=== PATIENT | female | born 1965 | race Caucasian/White ===

== ENCOUNTER 2017-12-11 10:48 | Emergency (ER) | payer OTHER, MEDICARE, SELFPAY ==
[2017-12-11 10:51] VITALS: BP 157/104; PULSE 75; RESP 16; TEMP 37.1; O2SAT 99; BMI 40.3
--- NOTE | 2017-12-11 11:01 | ED.VISSUMM ---
- ER Visit Summary Date of Service: 12/11/17 Chief Complaint: High blood glucose History of Present Illness: The patient is a 52 F with a history of diabetes presenting with elevated blood glucose. She had steroid injections 3 days ago and subsequently her glucose was elevated on fingerstick testing. She started drinking more water but this morning she thought she smelled ketones in her urine. No other symptoms. No recent infection. Physical Examination: Vitals are within normal limits. She is not in distress. Neck is supple. Heart tones are regular without murmur. Lungs are clear bilaterally. No rash. Neurologic and mental status exam are normal. Test Results: Glucose was 221 on her BMP. Anion gap is normal. Ketones negative Emergency Department Course and Treatment: She was given IV fluids. Glucose is only slightly elevated and she does not appear to be in DKA. She was given IV fluids and reevaluated and remains well-appearing. No complaints of infection. I think she can safely follow-up as an outpatient and return if worse Treatment Plan: Follow-up as needed Disposition: Home stable condition Impression: Initial encounter hyperglycemia without evidence of DKA This note was generated with [employer] dictation software. It may contain incorrect words, spelling, and punctuation that were not noted in review of the chart prior to signing ED Disposition - Plan for ED Patient: Chief Complaint: Hyperglycemia Diagnosis: Hyperglycemia Instructions: ED Hyperglycemia Diabetic Referrals: Ivette Suazo MD [Primary Care Provider] -
[2017-12-11 12:07] VITALS: BP 145/85; PULSE 80; RESP 14; O2SAT 97
[2017-12-11 12:13] LABS: Anion Gap 6 (5-15); BUN 26 mg/dL (7-18); BUN/Creat Ratio 31.9 RATIO (10-20); Calcium,Total 9.2 mg/dL (8.5-10.1); Chloride 104 mmol/L (98-107); Creatinine, Serum 0.82 mg/dL (0.55-1.02); EST Glomerular Filtration Rate 78 mL/min (>60); Est Glom Filt Rate - Afr Amer 94 mL/min (>60); Estimated Creatinine Clearance 68.51 ml/min; Glucose 221 mg/dL (74-106); Potassium 4.1 mmol/L (3.5-5.1); Sodium Level 136 mmol/L (136-145)
[2017-12-11 12:27] VITALS: BP 145/80; PULSE 80; RESP 14; O2SAT 99
[2017-12-11 12:31] LABS: Bedside Glucose 227 mg/dL (70-110)
== END 2017-12-11 12:37 | disposition home or self-care (01) ==
LOC: ED 11:39
PROVIDERS: Emergency Provider Emergency Medicine; Family Provider Internal Medicine; PCP Internal Medicine
DX: E11.65 Type 2 diabetes mellitus with hyperglycemia (principal); Z79.4 Long term (current) use of insulin; M79.7 Fibromyalgia; F31.9 Bipolar disorder, unspecified; F40.01 Agoraphobia with panic disorder; M06.9 Rheumatoid arthritis, unspecified; Z72.0 Tobacco use; Z79.899 Other long term (current) drug therapy
CPT/HCPCS: 80048; 82009; 82962; 99283; J7030; A4216

== ENCOUNTER → 2018-01-19 12:31 | Outpatient (CLI) | payer OTHER, MEDICARE, SELFPAY ==
--- NOTE | 2018-01-19 12:59 | MRI_ITS ---
STUDY: MRI LUMBAR SPINE WITHOUT CONTRAST REASON FOR EXAM: Female, 52 years old. Low back pain. Patient has history of rheumatoid arthritis. TECHNIQUE: Standardized fat and water weighted pulse sequences were obtained in the sagittal and axial planes. COMPARISON: MRI lumbar spine dated December 24, 2015. FINDINGS: Focus of abnormal T2 and T1 hyperintensity in the T11 vertebral body is most likely a hemangioma. T12-L1: There is mild annular disk bulge and osteophyte complex. There is mild degenerative arthropathy of the facet joints. Bilateral neuroforamina are narrowed without MR evidence for nerve impingement. There is no significant central canal stenosis. Normal lumbar lordosis. There is no substantial scoliosis. Normal conus medullaris that terminates at the L1 level. L1-2: Normal endplates. Normal disc height, signal and morphology. Normal bilateral facet joints. Normal central canal and bilateral lateral recesses. Normal bilateral intervertebral neural foramina. There is a large area of abnormal T1 and T2 hyperintensity within the L2 vertebral body. This is probably a hemangioma. L2-3: Normal endplates. Normal disc height, signal and morphology. Normal bilateral facet joints. Normal central canal and bilateral lateral recesses. Normal bilateral intervertebral neural foramina. L3-4: There is mild annular disk bulge and osteophyte complex. There is mild degenerative arthropathy of the facet joints. Bilateral neuroforamina are narrowed without MR evidence for nerve impingement. There is no significant central canal stenosis. L4-5: There is annular disc bulge and osteophyte complex. There is severe degenerative arthropathy of facet joints. The neural foramina are narrowed with questionable impingement of the left L4 nerve root at the neural foramen. There is no significant central acquired canal stenosis. L5-S1: There is mild annular disk bulge and osteophyte complex. There is mild degenerative arthropathy of the facet joints. Bilateral neuroforamina are narrowed without MR evidence for nerve impingement. There is no significant central canal stenosis. Normal visualized sacral ala. Normal visualized paraspinous soft tissue structures. There appears to be a cyst within the right kidney measuring up to 2 cm in greatest dimension. Appears to be multifocal renal parenchymal loss possibly related to previous ischemia or infection. MRI/Spine Lumbar (Routine) IMPRESSION: Multilevel degenerative disc disease and degenerative arthropathy lumbar spine with most severe changes at L4-5 with potential nerve impingement. Electronically Signed: Vane Boyce MD at 14:05 EDT , Service support ,
== END ==
PROVIDERS: Family Provider Internal Medicine; PCP Internal Medicine; Visit Provider Anesthesiology Pain Medicine
DX: M51.36 Other intervertebral disc degeneration, lumbar region (principal); M46.87 Other specified inflammatory spondylopathies, lumbosacral region; R29.898 Other symptoms and signs involving the musculoskeletal system
CPT/HCPCS: 72148

== ENCOUNTER 2018-01-22 19:12 | Emergency (ER) | payer OTHER, MEDICARE, SELFPAY ==
[2018-01-22 19:14] VITALS: BP 156/102; PULSE 84; RESP 17; TEMP 35.9; O2SAT 100; BMI 42.6
--- NOTE | 2018-01-22 19:29 | ED.VISSUMM ---
- ER Visit Summary Date of Service: 01/22/18 Chief Complaint: Swelling left thumb History of Present Illness: The patient is a [address] Suazo. 8 days ago she had a left carpal tunnel release and a left thumb trigger release. States that today she noticed that she had more swelling in that left thumb. She reports that she has paresthesias on the lateral side of the thumb ever since the surgery that are unchanged. She states that she has pain is 5 out of 10 severity. Is worsened by movement. Is relieved by rest and Percocet which she is previously on. She denies any constitutional symptoms. No fever, chills, nausea, or vomiting. Physical Examination: Vitals: Stable. Afebrile. General: Well-nourished and well-developed. Head: Normocephalic atraumatic. Neck: Supple, no lymphadenopathy. No JVD. Nontender. Cardiovascular: Regular rate and rhythm. No murmurs. Respiratory: No respiratory distress. Clear to auscultation bilaterally. Abdominal: Soft, nontender, nondistended, normal bowel sounds. No guarding, rebound, or peritoneal signs. Back: Nontender. Extremities: Left hand: Mild swelling to her thumb. Less than 2 second capillary refill. She has 3 stitches just proximal to the MCP joint. These are clean, dry, and intact. There is minimal surrounding erythema. There is no induration or fluctuance. She also has 3 stitches over the incision over the proximal portion of the palm of her hand that appear the same as the one over her thumb. Skin: Normal color, no rash. Neurologic: Alert and oriented ?3. Cranial nerves II through XII are intact. Normal strength and sensation. Psych: Normal affect. Emergency Department Course and Treatment: She was reassured. There is no evidence of infection. She is instructed to follow-up Dr. Haynes in 2 days as previously scheduled. Disposition: To home in improved and stable condition. Impression: 1. 8 days status post left hand surgery. This note was generated with [employer] dictation software. It may contain incorrect words, spelling, and punctuation that were not noted in review of the chart prior to signing ED Disposition - Plan for ED Patient: Disposition: Home or Assisted Living Chief Complaint: Wound Check Instructions: ED Wound Check Post Op No Infec Referrals: Jose Haynes MD [STAFF PHYSICIAN] - 2 Days for wound check
[2018-01-22 19:54] VITALS: BP 145/90; PULSE 90; RESP 14; O2SAT 99
== END 2018-01-22 19:56 | disposition home or self-care (01) ==
LOC: ED 19:51
PROVIDERS: Emergency Provider Emergency Medicine; Family Provider Internal Medicine; PCP Internal Medicine
DX: M79.89 Other specified soft tissue disorders (principal); Z98.890 Other specified postprocedural states; J45.909 Unspecified asthma, uncomplicated; E11.9 Type 2 diabetes mellitus without complications; Z79.4 Long term (current) use of insulin; Z79.899 Other long term (current) drug therapy
CPT/HCPCS: 99282

== ENCOUNTER 2018-04-09 23:36 | Emergency (ER) | payer OTHER, MEDICARE, SELFPAY ==
[2018-04-09 23:37] VITALS: BP 167/89; PULSE 86; RESP 17; TEMP 36.2; O2SAT 96; BMI 41.8
--- NOTE | 2018-04-09 23:50 | ED.VISSUMM ---
- ER Visit Summary Date of Service: 04/09/18 Chief Complaint: [] Back pain History of Present Illness: The patient is a 52 F [] complaining of acute back pain today after cleaning her room. Patient reports history of chronic back pain with multiple bulging disks in her lumbosacral spine. Denies incontinence or saddle anesthesia. No other complaints at this time. Physical Examination: [] Afebrile, vital signs stable. 52-year-old female no acute distress. Examination of the back reveals no significant findings. There is mild midline lumbosacral tenderness without step-off or surrounding erythema or cellulitis. Remainder of exam is unremarkable. Test Results: [] None. Emergency Department Course and Treatment: [] Patient given 30 IM Toradol and 4 mg orally of Zofran ODT. Prescription for Zofran ODT was provided at discharge. Patient encouraged to follow-up with her primary care physician. Treatment Plan: [] Follow-up with PCP. Disposition: [] Discharge, stable. Impression: [] Acute on chronic back pain This note was generated with [employer] dictation software. It may contain incorrect words, spelling, and punctuation that were not noted in review of the chart prior to signing ED Disposition - Plan for ED Patient: Chief Complaint: Back Referrals: Ivette Suazo MD [Primary Care Provider] -
--- NOTE | 2018-04-09 23:52 | ED.DEP ---
ED Disposition - Plan for ED Patient: Disposition: Home or Assisted Living Chief Complaint: Back Instructions: ED Low Back Pain Injury Referrals: Ivette Suazo MD [Primary Care Provider] -
[2018-04-09] MEDS: Ketorolac 30 MG/ML Syringe IM (23:59)
[2018-04-09] MEDS: Ondansetron ODT 4 MG Tablet PO (23:59)
[2018-04-10 00:24] VITALS: PULSE 88; RESP 16
== END 2018-04-10 00:24 | disposition home or self-care (01) ==
LOC: ED 04-10 00:15
PROVIDERS: Emergency Provider Emergency Medicine; Family Provider Internal Medicine; PCP Internal Medicine
DX: M54.5 Low back pain (principal); G89.29 Other chronic pain
CPT/HCPCS: 96372; 99283

== ENCOUNTER 2018-06-20 10:32 | Emergency (ER) | payer OTHER, MEDICARE, SELFPAY ==
[2018-06-20 10:33] VITALS: BP 160/86; PULSE 82; RESP 18; TEMP 36.6; O2SAT 99; BMI 41.0
[2018-06-20 10:51] VITALS: O2SAT 100
[2018-06-20 10:59] LABS: Absolute Neutrophil Count 3.1 X10^3/uL (2.0-7.7); Basophil# 0.02 X10^3/uL; Basophil% 0.3 % (0-1); Eosinophil# 0.15 X10^3/uL; Eosinophils% 2.3 % (0-5); Hematocrit 45.6 % (37-47); Hemoglobin 15.9 g/dl (12.0-15.0); Lymphocyte % 42.2 % (19-41); Mean Corp Hgb Conc 34.9 g/gl (32-36); Mean Corpuscular Hgb 31.4 pg (27.0-32.0); Mean Corpuscular Volume 90.1 fL (81-99); Monocyte# 0.53 X10^3/uL; Neutrophil # 3.11 X10^3/uL (2.7-7.7); Neutrophil % 46.9 % (47-70); POSITIVE COUNT NO; POSITIVE DIFFERENTIAL NO; POSITIVE MORPHOLOGY NO; Platelet Count 255 K/mm3 (150-450); RBC Distribution Width CV 11.6 % (11.6-14.6); RBC Distribution Width SD 38.1 fl (35.1-43.9); Red Blood Count 5.06 M/mm3 (4.2-5.4); White Blood Count 6.6 K/mm3 (4.4-11.0)
[2018-06-20 11:31] LABS: D-Dimer Quantitative (DVT/PE) < 0.27 FEU/ug/m (0.27-0.49)
[2018-06-20 11:39] LABS: Anion Gap 7 (5-15); BUN 12 mg/dL (7-18); BUN/Creat Ratio 15.2 RATIO (10-20); Calcium,Total 9.4 mg/dL (8.5-10.1); Chloride 105 mmol/L (98-107); Creatinine, Serum 0.79 mg/dL (0.55-1.02); EST Glomerular Filtration Rate 81 mL/min (>60); Est Glom Filt Rate - Afr Amer 98 mL/min (>60); Estimated Creatinine Clearance 73.25 ml/min; Glucose 339 mg/dL (74-106); Potassium 5.1 mmol/L (3.5-5.1); Sodium Level 137 mmol/L (136-145)
[2018-06-20] MEDS: Ondansetron 4 MG/2 ML Vial IV (12:30)
[2018-06-20] MEDS: Morphine 4 MG/ML Syringe IV (12:30)
[2018-06-20] MEDS: LORazepam 1 MG Tablet PO (12:30)
[2018-06-20 12:31] VITALS: BP 165/81; PULSE 76; RESP 16; O2SAT 98
--- NOTE | 2018-06-20 12:40 | ED.VISSUMM ---
- ER Visit Summary Date of Service: 06/20/18 Chief Complaint: Chest pain History of Present Illness: The patient is a 53 F presenting with chest pain which started 1 hour prior to arrival. She states the pain is in her mid chest. It is associated with shortness of breath. She denies fever or cough. She is a smoker. She had similar symptoms in February 2017 and was admitted for stress test. She had a negative stress test at that time and was diagnosed with anxiety. She states she is not under any increased stress. Denies other complaints. Physical Examination: Vitals are stable. Patient is afebrile. Alert no acute distress. HEENT exam is unremarkable. Neck is supple. Lungs are clear and equal bilaterally. Heart is regular rate and rhythm. Abdomen is soft nontender nondistended. Extremities are unremarkable. Skin is warm and dry. No focal neurologic deficit. Remainder of exam is unremarkable. Emergency Department Course and Treatment: Patient was given morphine, Zofran, Ativan. EKG is sinus rate of 83 with no acute ischemic changes. Chest x-ray shows no acute process. CBC, chemistries unremarkable other than glucose 339. Troponin is negative. D-dimer negative. Delta troponin is also negative. On repeat evaluation, patient is resting comfortably and is pain-free. She is advised to follow-up with her primary care physician. Advised return to ED for any worsening complaints. Disposition: Discharge home Impression: Atypical chest pain This note was generated with [employer] dictation software. It may contain incorrect words, spelling, and punctuation that were not noted in review of the chart prior to signing ED Disposition - Plan for ED Patient: Chief Complaint: Chest Pain Referrals: Ivette Suazo MD [Primary Care Provider] -
[2018-06-20 12:57] VITALS: BP 165/81; PULSE 75; RESP 17; O2SAT 98
[2018-06-20 13:07] LABS: Lithium < 0.20 mmol/L (0.60-1.20); Valproic Acid (Depakene) Level < 3 ug/mL (50-100)
[2018-06-20 14:06] VITALS: BP 116/81; PULSE 77; RESP 17; O2SAT 93
--- NOTE | 2018-06-20 14:38 | ED.DEP ---
ED Disposition - Plan for ED Patient: Chief Complaint: Chest Pain Instructions: ED Chest Pain Atypical Unkn Cause Referrals: Ivette Suazo MD [Primary Care Provider] -
[2018-06-20 14:48] VITALS: BP 116/81; PULSE 76; RESP 16; O2SAT 95
== END 2018-06-20 14:49 | disposition home or self-care (01) ==
PROVIDERS: Emergency Provider Emergency Medicine; Family Provider Internal Medicine; PCP Internal Medicine
DX: R07.89 Other chest pain (principal); I10 Essential (primary) hypertension; E11.9 Type 2 diabetes mellitus without complications; M79.7 Fibromyalgia; F41.0 Panic disorder [episodic paroxysmal anxiety]; F17.200 Nicotine dependence, unspecified, uncomplicated; Z79.4 Long term (current) use of insulin; Z79.899 Other long term (current) drug therapy
CPT/HCPCS: 36415; 71045; 80048; 80164; 80178; 84484; 85025; 85379; 93005; 96374; 96375; 99285; A4216; J2405

== ENCOUNTER 2018-10-29 01:26 | Emergency (ER) | payer OTHER, MEDICARE, SELFPAY ==
[2018-10-29 01:26] VITALS: BMI 40.3
[2018-10-29 01:27] VITALS: BP 152/79; PULSE 84; RESP 20; TEMP 36.6; O2SAT 100; BMI 39.4
--- NOTE | 2018-10-29 02:04 | ED.DCSUM_ITS ---
- ER Visit Summary Date of Service: 10/29/18 Chief Complaint: Low blood sugar reading on new device History of Present Illness: The patient is a 53 F who presents because of low blood sugar reading. She has had multiple low blood sugar readings. She denies any symptoms of hypoglycemia i.e. palpitations, diaphoresis nausea altered mental status. Her primary care physician removed most of her diabetic medications. She states she did a fingerstick and the reading was greater than 200. Physical Examination: Vital signs noted and remarkable for blood pressure 152/79. She is alert oriented x3 with a nonfocal neurologic exam. HEENT exam is normal. Heart is regular. There is no murmur, gallop or rub. Lungs are clear to auscultation. Abdomen soft nontender. Test Results: BGT 170 Emergency Department Course and Treatment: Assess blood sugar Treatment Plan: Speak with PCP and need new device calibrated Disposition: Discharge to home Impression: False low blood sugar reading on glucometer, inaccurate This note was generated with [employer] dictation software. It may contain incorrect words, spelling, and punctuation that were not noted in review of the chart prior to signing ED Disposition - Plan for ED Patient: Disposition: Home or Assisted Living Chief Complaint: Hypoglycemia Instructions: ED Screening Exam Medical Nonurgent Referrals: Ivette Suazo MD [Primary Care Provider] - Additional Instructions: You need to follow-up with Dr. Thompson and have the device recalibrated and your meds adjusted appropriately since the and glucometer has not been reading accurately
[2018-10-29 02:21] LABS: Bedside Glucose 176 mg/dL (70-110)
== END 2018-10-29 02:18 | disposition home or self-care (01) ==
PROVIDERS: Emergency Provider Emergency Medicine; Family Provider Internal Medicine; PCP Internal Medicine
DX: E11.9 Type 2 diabetes mellitus without complications (principal); I10 Essential (primary) hypertension; M06.9 Rheumatoid arthritis, unspecified; M79.7 Fibromyalgia; G25.81 Restless legs syndrome; Z72.0 Tobacco use; Z79.82 Long term (current) use of aspirin; Z79.84 Long term (current) use of oral hypoglycemic drugs; Z79.899 Other long term (current) drug therapy
CPT/HCPCS: 82962; 99282

== ENCOUNTER 2020-04-01 01:09 | Emergency (ER) | payer OTHER, MEDICARE, SELFPAY ==
[2020-04-01 01:10] VITALS: BP 162/82; PULSE 85; RESP 15; TEMP 36.8; O2SAT 97; BMI 42.0
--- NOTE | 2020-04-01 01:43 | ED.VISSUMM ---
- ER Visit Summary Date of Service: 04/01/20 Chief Complaint: Whole body pain with a history of fibromyalgia History of Present Illness: The patient is a 54 F history of diabetes, rheumatoid arthritis and fibromyalgia. Patient states that she has had building whole body pain for the last 2 weeks. Denies any falls or trauma. No fever. Says she has had symptoms like this before but never to this degree. She said she is received Toradol before in emergency department helped her specifically for pain. She denies any nausea or vomiting. Physical Examination: Middle-aged female no acute distress vital signs stable afebrile. Does not look septic or toxic. HEENT exam unremarkable. Lungs clear to auscultation bilaterally. Heart regular rhythm no murmur. Abdomen soft nontender. Normal bowel sounds no peritoneal signs. Moving all 4 extremities.. Calves nontender no edema no cords. Neurologically she is awake and alert with no focal motor deficit. Test Results: Blood glucose was 447. Emergency Department Course and Treatment: BGT will be obtained. She will receive IM Toradol. Treatment Plan: Patient has unremarkable exam. Continue her current medications. Follow-up with her primary care physician. Watch her blood sugars closely. Disposition: Discharge Impression: Non-verifiable pain History of fibromyalgia History of diabetes with hyperglycemia. This note was generated with [employer] dictation software. It may contain incorrect words, spelling, and punctuation that were not noted in review of the chart prior to signing ED Disposition - Plan for ED Patient: Disposition: Home or Assisted Living Instructions: ED Chronic Pain Referrals: Ivette Suazo MD [Primary Care Provider] - As soon as possible Additional Instructions: Follow-up with your doctor for reevaluation. Watch your blood sugars closely.
--- NOTE | 2020-04-01 01:46 | ED.DEP ---
ED Disposition - Plan for ED Patient: Disposition: Home or Assisted Living Instructions: ED Chronic Pain Referrals: Ivette Suazo MD [Primary Care Provider] - As soon as possible Additional Instructions: Follow-up with your doctor for reevaluation. Watch your blood sugars closely.
[2020-04-01 02:11] LABS: Bedside Glucose 447 mg/dL (70-110)
[2020-04-01] MEDS: Ketorolac 60 MG/2 ML Vial IM (02:11)
[2020-04-01 02:27] VITALS: BP 156/73; PULSE 76; RESP 15; O2SAT 94
== END 2020-04-01 02:58 | disposition home or self-care (01) ==
LOC: ED 02:47
PROVIDERS: Emergency Provider Emergency Medicine; PCP Internal Medicine
DX: M79.7 Fibromyalgia (principal); G89.29 Other chronic pain; E11.65 Type 2 diabetes mellitus with hyperglycemia; M06.9 Rheumatoid arthritis, unspecified; Z79.4 Long term (current) use of insulin
CPT/HCPCS: 82962; 96372; 99282

== ENCOUNTER 2020-04-02 11:27 | Emergency (ER) | payer OTHER, MEDICARE, SELFPAY ==
[2020-04-01 01:10] VITALS: BMI 42.0
[2020-04-02 11:28] VITALS: BP 183/88; PULSE 77; RESP 16; TEMP 36.3; O2SAT 99; BMI 39.9
--- NOTE | 2020-04-02 11:51 | ED.DCSUM_ITS ---
History of Present Illness Chief Complaint: Other, Pain/Inj Informant: Patient Onset: Weeks - 2 weeks Context: Gradual Onset Current Severity: Moderate Maximum Severity: Moderate Narrative: Patient presents with pain from her lower ribs down through her trunk and legs. She is a history of rheumatoid arthritis and fibromyalgia. She states this is not typical of her flares. She is currently on Topamax and Voltaren. She takes Mirapex at night. She states she ran out of her Zanaflex last evening. Patient was in the ER early yesterday morning and received a shot of Toradol which she states did give her some relief and she was able to sleep for a short time. She called her PCP today who advised they were not able to help her and she should go to the emergency room. They did agree to see her tomorrow as a phone visit. - Past Medical History (1) Chronic pain Status: Chronic Comment: sees Dr. Monsalve (2) DM type 2 (diabetes mellitus, type 2) Status: Chronic (3) Fibromyalgia Status: Chronic (4) HTN (hypertension) Status: Chronic (5) Restless leg Status: Chronic (6) Rheumatoid arthritis Status: Chronic Comment: sees Dr. Davis (7) Sleep apnea Status: Chronic Comment: non-compliant with CPAP Past Medical History - Allergies and Home Meds Allergies/Adverse Reactions: Allergies mushroom Allergy (Severe, Verified 04/01/20:18) Anaphylaxis venom-wasp [wasp venom] Allergy (Severe, Verified 04/01/20:18) Anaphylaxis ciprofloxacin [From Cipro] Allergy (Verified 04/01/20:18) Rash ciprofloxacin HCl [From Cipro] Allergy (Verified 04/01/20:18) Rash Sulfa (Sulfonamide Antibiotics) Allergy (Verified 04/01/20:18) Unknown cephalexin [From Keflex] Adverse Reaction (Verified 04/01/20:18) Rash cyclobenzaprine [From Flexeril] Adverse Reaction (Verified 04/01/20:18) Rash meloxicam [From Mobic] Adverse Reaction (Verified 04/01/20:18) Unknown nitrofurantoin [From Macrobid] Adverse Reaction (Verified 04/01/20:18) Vomiting Primary Care Physician: Ivette Suazo MD [Primary Care Provider] - Prior records reviewed: Yes Surgical History: appendectomy, cholecystectomy Smoking Status: Never smoker - Family History Maternal Family History: Reports: No pertinent history Paternal Family History: Reports: No pertinent history Review of Systems General: Denies: Chills, Fever Eyes: Denies: Visual changes - bilaterally ENT: Denies: Bilateral ear pain Cardiovascular: Denies: Chest pain Respiratory: Denies: Dyspnea, Cough Gastrointestinal: Denies: Abdominal pain Musculoskeletal: Reports: Myalgias, Arthralgias Skin: Denies: Rash Neurological: Denies: Parasthesia Hematologic: Denies: Easy bruising, Easy bleeding Allergy: Denies: Uticaria Physical Exam Vital Signs/Narrative: Vital Signs Temp Pulse Resp BP Pulse Ox 04/02/20 11:28 97.4 F L 77 16 183/88 H 99 Inital Vital Signs reviewed: Yes General: Well nourished, Well developed Head: Normocephalic ENT: Moist mucous membranes Neck: Supple Cardiovascular: Regular rate, Regular rhythm Respiratory: No distress, CTA bilaterally Abdomen: Soft, Nontender Back: - - Mild tenderness in the lumbar paraspinal muscles. No skin changes. Skin: Normal color Neurological: Alert, Oriented x3, Normal Strength, Normal Sensation Psychological: Normal affect Diagnostic/Tx/Re-eval - Medical Decision Making Patient did get relief from IM Toradol. She will be given another shot currently. She will be written for Toradol tabs as well as a refill on her Za naflex. She will be advised not to take her Voltaren at the same time that she is using the Toradol. She is to follow-up with her PCP tomorrow as scheduled. ED Disposition - Plan for ED Patient: Disposition: Home or Assisted Living Diagnosis: Fibromyalgia affecting multiple sites Instructions: ED Pain Management Chronic, ED ACHING MUSCLES Prescriptions: Ketorolac [Toradol] 10 mg PO Q6H PRN #20 tab PRN Reason: Pain Score 4-10/10 Transmission Status: Pending to [id number] Tizanidine HCl [Zanaflex] 2 mg PO Q8H PRN #10 tab PRN Reason: Spasms Transmission Status: Pending to [id number] Referrals: Ivette Suazo MD [Primary Care Provider] - [facility] appointment Additional Instructions: Do not take Voltaren while taking Toradol for your pain - you can take one or the other.
[2020-04-02] MEDS: Ketorolac 60 MG/2 ML Vial IM (12:06)
[2020-04-02 12:38] VITALS: BP 164/83; PULSE 83; RESP 17; O2SAT 97
== END 2020-04-02 12:39 | disposition home or self-care (01) ==
LOC: ED 12:05
PROVIDERS: Emergency Provider Emergency Medicine; PCP Internal Medicine
DX: M79.7 Fibromyalgia (principal); G89.29 Other chronic pain; E11.9 Type 2 diabetes mellitus without complications; I10 Essential (primary) hypertension; G25.81 Restless legs syndrome; M06.9 Rheumatoid arthritis, unspecified; G47.30 Sleep apnea, unspecified; Z91.19 Patient's noncompliance with other medical treatment and regimen; Z79.4 Long term (current) use of insulin
CPT/HCPCS: 96372; 99282

== ENCOUNTER 2020-07-27 19:12 | Emergency (ER) | payer OTHER, MEDICARE, SELFPAY ==
[2020-07-27 19:12] VITALS: BP 154/94; PULSE 101; RESP 20; TEMP 36.4; O2SAT 99; BMI 42.0
--- NOTE | 2020-07-27 19:34 | CT_ITS ---
STUDY: CT ABDOMEN AND PELVIS WITH CONTRAST REASON FOR EXAM: Female, 55 years old. Diffuse abdominal and low back pain without injury, numbness in legs RADIATION DOSAGE (If Supplied By Facility): CTDIvol = ( 20.35 ) mGy, DLP = ( 1448.39 ) mGycm TECHNIQUE: CT images were obtained from the dome of the diaphragm to the symphysis pubis without oral contrast. IV 100mL Isovue-370 was administered. Sagittal and coronal images were reconstructed. Individualized dose optimization techniques were used for this CT. COMPARISON: None. FINDINGS: Lung bases are clear with minor lingular and right middle lobe atelectasis. Inferior mediastinal structures are normal. Liver is fatty infiltrated and enlarged without focal lesions. Gallbladder is removed and there is no biliary dilation. Spleen, adrenals and pancreas are normal. There is a left renal scar. There is a right renal 2 cm intraparenchymal hypodense well-defined lesion, incompletely characterized. There are no urinary calculi or hydronephrosis. There is no intestinal obstruction. Appendix is removed. Uterus is removed. Bladder is normal. BMI severely elevated. Osseous structures are intact. Lumbar spinal canal is patent. CT/Abdomen/Pelvis W IV Cont ONLY IMPRESSION: 1. No acute findings. 2. Hepatomegaly and steatosis. 3. Probable right renal cyst, refer to confirmatory ultrasonography. Electronically Signed: Tessa Marsh, at 21:28 EDT Tel , Service support ,
--- NOTE | 2020-07-27 19:35 | ED.VIS.GEN ---
History of Present Illness Chief Complaint: Back Informant: Patient Onset: Month(s) - many Context: Gradual Onset Timing: Continuous, Waxes and wanes Quality: ache Location: across mid-lumbar back Current Severity: Severe Maximum Severity: Severe Worsened by: movement, having bowel movement Relieved by: nothing today Associated Symptoms: nausea, diffuse lower abd pain Narrative: Patient states she has had MRI of her back showing degenerative disc disease and arthritis in the past, last time she had one was several years ago. She has been having pain in her low back that is worse with bowel movements for the past multiple months. However today the symptoms have been worse and for the last 3 or so hours she has been having diffuse abdominal discomfort that is lower, in addition to tingling in both of her legs, front and back, down to her feet, without weakness or saddle anesthesia or bowel or bladder dysfunction. All this started tonight after she had a bowel movement, which was loose and otherwise unremarkable and nonbloody. She typically goes every morning and there has been no significant changes there, she goes back and forth from diarrhea to constipation and today again was somewhere in between. - Past Medical History (1) Chronic pain Status: Chronic Comment: sees Dr. Monsalve (2) DM type 2 (diabetes mellitus, type 2) Status: Chronic (3) Fibromyalgia Status: Chronic (4) HTN (hypertension) Status: Chronic (5) Morbid obesity with BMI of 45.0-49.9, adult Status: Chronic (6) Restless leg Status: Chronic (7) Rheumatoid arthritis Status: Chronic Comment: sees Dr. Davis (8) Sleep apnea Status: Chronic Comment: non-compliant with CPAP (9) Venous insufficiency (chronic) (peripheral) Status: Chronic Past Medical History - Allergies and Home Meds Allergies/Adverse Reactions: Allergies mushroom Allergy (Severe, Verified 07/27/20 20:18) Anaphylaxis venom-wasp [wasp venom] Allergy (Severe, Verified 07/27/20 20:18) Anaphylaxis ciprofloxacin [From Cipro] Allergy (Verified 07/27/20 20:18) Rash ciprofloxacin HCl [From Cipro] Allergy (Verified 07/27/20 20:18) Rash Sulfa (Sulfonamide Antibiotics) Allergy (Verified 07/27/20 20:18) Unknown cephalexin [From Keflex] Adverse Reaction (Verified 07/27/20 20:18) Rash cyclobenzaprine [From Flexeril] Adverse Reaction (Verified 07/27/20 20:18) Rash meloxicam [From Mobic] Adverse Reaction (Verified 07/27/20 20:18) Unknown nitrofurantoin [From Macrobid] Adverse Reaction (Verified 07/27/20 20:18) Vomiting Primary Care Physician: Ivette Suazo MD [Primary Care Provider] - As soon as possible Surgical History: appendectomy, cholecystectomy, hysterectomy Smoking Status: Never smoker Drugs: None - Family History Maternal Family History: Reports: No pertinent history Paternal Family History: Reports: No pertinent history Review of Systems General: Denies: Chills, Fever, Sweats Eyes: Denies: Visual changes - bilaterally, Diplopia ENT: Denies: Rhinorrhea, Sore throat Cardiovascular: Denies: Chest pain, Palpitations Respiratory: Denies: Dyspnea, Cough, Dyspnea on exertion Gastrointestinal: Reports: Abdominal pain, Nausea. Denies: Vomiting, Constipation, Melena, Hematochezia Genitourinary: Denies: Dysuria, Hematuria, Frequency Musculoskeletal: Reports: Back pain. Denies: Myalgias, Neck pain, Swelling, Extremity Pain Skin: Denies: Rash, Wounds Neurological: Reports: Parasthesia. Denies: Headache, Weakness Physical Exam Vital Signs/Narrative: Vital Signs Temp Pulse Resp BP Pulse Ox 07/27/20 19:12 97.6 F L 101 H 20 H 154/94 H 99 Inital Vital Signs reviewed: Yes General: Well nourished, Well developed, Obese, No Acute Distress Head: Normocephalic, Atraumatic Eyes: Perrl, EOMI ENT: Moist mucous membranes, No rhinorrhea Neck: Supple, Nontender Cardiovascular: Regular rate, Regular rhythm, No murmurs Respiratory: No distress, CTA bilaterally, Chest nontender Abdomen: Soft, Nondistended, Normal bowel sounds, Tender - Diffusely, more so throughout the lower abdomen. Patient subjectively states the worst area is just left of the periumbilical area, - - Exam limited due to morbid obesity. Negative for: Guarding, Rebound tenderness, Pulsatile mass Back: Normal Inspection, - - Bilateral lumbosacral paraspinal tenderness. Negative straight leg raises while sitting reclined bilaterally, no reproduction of radicular symptoms, just mild increase in low back discomfort.. Negative for: CVA tenderness, Spinal tenderness Extremities: Nontender, Edema - Trace bilateral pretibial symmetric. Negative for: Calf Tenderness Skin: Normal color, No rash, No Trauma Neurological: Alert, Oriented x3, Cranial nerves II-XII grossly intact, Normal Strength, Normal Sensation, Normal DTR, Normal Gait Psychological: Normal Mood, - - Anxious and hyperventilating somewhat, uncomfortable in pain Diagnostic/Tx/Re-eval Impressions Abdomen/Pelvis CT 07/27/20 19:34 IMPRESSION: 1. No acute findings. 2. Hepatomegaly and steatosis. 3. Probable right renal cyst, refer to confirmatory ultrasonography. Electronically Signed: Tessa Marsh, at 21:28 EDT Tel , Service support , 07/27/20 19:34 Abdomen/Pelvis W IV Cont ONLY [CT] Stat Laboratory Results 07/27/20 07/27/20 07/27/20 20:10 20:10 20:10 WBC Cancelled Corrected WBC Cancelled RBC Cancelled Hgb Cancelled Hct Cancelled MCV Cancelled MCH Cancelled MCHC Cancelled RDW Std Deviation Cancelled RDW Coeff of Ambrosio Cancelled Plt Count Cancelled MPV Cancelled Immature Gran % (Auto) Cancelled Neut % (Auto) Cancelled Lymph % (Auto) Cancelled [facility] % (Auto) Cancelled Eos % (Auto) Cancelled Baso % (Auto) Cancelled Absolute Neuts (auto) Cancelled Absolute Lymphs (auto) Cancelled Total Counted Cancelled Neutrophils % (Manual) Cancelled Band Neutrophils % Cancelled Lymphocytes % (Manual) Cancelled Monocytes % (Manual) Cancelled Eosinophils % (Manual) Cancelled Basophils % (Manual) Cancelled Metamyelocytes % Cancelled Myelocytes % Cancelled Promyelocytes % Cancelled Blast Cells % Cancelled Plasma Cell % (Manual) Cancelled Other Cells % Cancelled Nucleated RBC % Cancelled Nucleated RBCs/100 WBC Cancelled Differential Comment Cancelled Diff Path Review Cancelled Hypersegmented Neuts Cancelled Atypical Lymphocytes Cancelled Reactive Lymphocytes Cancelled Smudge Cells Cancelled Toxic Granulation Cancelled Toxic Vacuolation Cancelled Dohle Bodies Cancelled Vi Rods Cancelled Platelet Estimate Cancelled Plt Morphology Comment Cancelled RBC Morphology Cancelled Polychromasia Cancelled Hypochromasia Cancelled Poikilocytosis Cancelled Basophilic Stippling Cancelled Anisocytosis Cancelled Microcytosis Cancelled Macrocytosis Cancelled Spherocytes Cancelled Sickle Cells Cancelled Target Cells Cancelled Tear Drop Cells Cancelled Ovalocytes Cancelled Stomatocytes Cancelled [place]-Faison Bodies Cancelled Jonny Cells Cancelled Bite Cells Cancelled Crenated Cell Cancelled Acanthocytes (Spur) Cancelled Rouleaux Cancelled Schistocytes Cancelled Sodium 138 Potassium 4.2 Chloride 105 Carbon Dioxide 25.0 Anion Gap 8 BUN 15 Creatinine 1.15 H Estim Creat Clear Calc 49.15 Est GFR (MDRD) Af Amer 63 Est GFR (MDRD) Non-Af 52 L BUN/Creatinine Ratio 13.0 Glucose 443 H Calcium 9.7 Total Bilirubin 0.40 AST 23 ALT 69 H Alkaline Phosphatase 112 Total Protein 7.3 Albumin 3.7 Globulin 3.6 Albumin/Globulin Ratio 1.0 Lipase 252 Urine Color Yellow Urine Clarity Clear Urine pH 6.5 Ur Specific [place] 1.020 Urine Protein Negative Urine Glucose (UA) 1000 H Urine Ketones 5 H Urine Occult Blood Negative Urine Nitrite Negative Urine Bilirubin Negative Urine Urobilinogen Normal Ur Leukocyte Esterase Negative Urine RBC 0 SEEN Urine WBC 0 SEEN Ur Squamous Epith Cells 0-5 SEEN Urine Bacteria RARE Urine Mucus 0 SEEN 07/27/20 20:30 WBC 8.5 Corrected WBC RBC 4.52 Hgb 13.9 Hct 41.4 MCV 91.6 MCH 30.8 MCHC 33.6 RDW Std Deviation 39.6 RDW Coeff of Ambrosio 11.7 Plt Count 283 MPV 10.3 Immature Gran % (Auto) 0.200 Neut % (Auto) 58.2 Lymph % (Auto) 33.1 [facility] % (Auto) 6.7 Eos % (Auto) 1.3 Baso % (Auto) 0.5 Absolute Neuts (auto) 4.9 Absolute Lymphs (auto) 2.81 Total Counted Neutrophils % (Manual) Band Neutrophils % Lymphocytes % (Manual) Monocytes % (Manual) Eosinophils % (Manual) Basophils % (Manual) Metamyelocytes % Myelocytes % Promyelocytes % Blast Cells % Plasma Cell % (Manual) Other Cells % Nucleated RBC % 0 Nucleated RBCs/100 WBC Differential Comment Diff Path Review Hypersegmented Neuts Atypical Lymphocytes Reactive Lymphocytes Smudge Cells Toxic Granulation Toxic Vacuolation Dohle Bodies Vi Rods Platelet Estimate Plt Morphology Comment RBC Morphology Polychromasia Hypochromasia Poikilocytosis Basophilic Stippling Anisocytosis Microcytosis Macrocytosis Spherocytes Sickle Cells Target Cells Tear Drop Cells Ovalocytes Stomatocytes L[place]-Faison Bodies Jonny Cells Bite Cells Crenated Cell Acanthocytes (Spur) Rouleaux Schistocytes Sodium Potassium Chloride Carbon Dioxide Anion Gap BUN Creatinine Estim Creat Clear Calc Est GFR (MDRD) Af Amer Est GFR (MDRD) Non-Af BUN/Creatinine Ratio Glucose Calcium Total Bilirubin AST ALT Alkaline Phosphatase Total Protein Albumin Globulin Albumin/Globulin Ratio Lipase Urine Color Urine Clarity Urine pH Ur Specific [place] Urine Protein Urine Glucose (UA) Urine Ketones Urine Occult Blood Urine Nitrite Urine Bilirubin Urine Urobilinogen Ur Leukocyte Esterase Urine RBC Urine WBC Ur Squamous Epith Cells Urine Bacteria Urine Mucus - Medical Decision Making Aside from hyperglycemia in the 440s, work-up is reassuring. Her CT is negative, this was IV contrasted. She was given IV fluids, morphine, Zofran. She did improve and afterwards is still on discomfort with regards to her low back more so than anything, she is requesting Toradol. She was placed on oral Toradol in the past, I do not recommend that given that she is diabetic, however I think 1 dose of low-dose IV Toradol is reasonable while she is here. I treated her hyperglycemia with insulin and IV fluids, we will recheck her and as long as she is down without being too low, plan is to discharge her home with a prescription for something for pain temporarily until she can follow-up after the weekend. She does not have any clinical evidence of cauda equina syndrome. It certainly is possible that she is having bilateral radicular symptoms related to her low back pain, she did have an MRI in 2018 showing possible nerve impingement at the L4-5 level, we discussed reasons to return and I think it is safe for her to follow-up at this time. ED Disposition - Plan for ED Patient: Disposition: Home or Assisted Living Diagnosis: Periumbilical abdominal pain, Low back pain with bilateral sciatica, Hyperglycemia due to type 2 diabetes mellitus Instructions: ED Back Pain Acute or Chronic, ED Diabetic Hyperglycemia Prescriptions: traMADol [Ultram] 50 mg PO Q4H PRN PRN #12 tab PRN Reason: Pain Prescription Printed Referrals: Ivette Suazo MD [Primary Care Provider] - As soon as possible
[2020-07-27] MEDS: 0.9% Normal Saline 1,000 ML 1000 ML IV (20:14)
[2020-07-27] MEDS: Morphine 4 MG/ML Syringe IV (20:14)
[2020-07-27] MEDS: Ondansetron 4 MG/2 ML Vial IV (20:14)
[2020-07-27 20:22] LABS: Mucous, Urine 0 SEEN /hpf (<or=2+); Red Blood Cells-Urine 0 SEEN /hpf (0-5); White Blood Cells 0 SEEN /hpf (0-5)
[2020-07-27 20:28] LABS: Color, Urine Yellow (Yellow); Glucose, Dipstick 1000 mg/dl (Normal); Ketone-Dipstick 5 mg/dl (Negative); Leukocyte Esterase-Dipstick Negative /ul (Negative); Nitrite-Dipstick Negative (Negative); Occult Blood-Urine Negative /ul (Negative); Protein-Dipstick Negative (Negative); Urine Bilirubin Dipstick Negative (Negative); Urine Clarity Clear (Clear); Urine Urobilinogen Normal (Normal); Urine pH 6.5 (5.0 - 8.0)
[2020-07-27 20:30] LABS: Squamous Epithelial Cells - UA 0-5 SEEN /hpf (5-10)
[2020-07-27 20:31] LABS: Bacteria RARE /hpf (None Seen)
[2020-07-27 20:45] LABS: Absolute Lymphocyte Count 2.81 X10^3/uL (0.83-4.51); Absolute Neutrophil Count 4.9 X10^3/uL (2.0-7.7); Basophil# 0.04 X10^3/uL; Basophil% 0.5 % (0-1); Eosinophil# 0.11 X10^3/uL; Eosinophils% 1.3 % (0-5); Hematocrit 41.4 % (37-47); Hemoglobin 13.9 g/dL (12.0-15.0); Lymphocyte # 2.81 X10^3/ul (4.0); Lymphocyte % 33.1 % (19-41); Mean Corp Hgb Conc 33.6 g/dL (32-36); Mean Corpuscular Hgb 30.8 pg (27.0-32.0); Mean Corpuscular Volume 91.6 fL (81-99); Mean Platelet Vol. 10.3 fl (6.2-12.0); Monocyte# 0.57 X10^3/uL; Monocyte% 6.7 % (0-10); NRBC Flagged by Analyzer 0 % (0-5); Neutrophil # 4.93 X10^3/uL (2.7-7.7); Neutrophil % 58.2 % (47-70); Platelet Count 283 K/mm3 (150-450); RBC Distribution Width CV 11.7 % (11.6-14.6); RBC Distribution Width SD 39.6 fl (35.1-43.9); Red Blood Count 4.52 M/mm3 (4.2-5.4); White Blood Count 8.5 K/mm3 (4.4-11.0)
[2020-07-27 20:45] LABS: AST(SGOT) 23 U/L (15-37); Alanine Aminotransfer ALT/SGPT 69 U/L (13-56); Albumin, Serum 3.7 g/dL (3.2-5.0); Alkaline Phosphatase 112 U/L (45-117); Anion Gap 8 (5-15); BUN 15 mg/dL (7-18); Calcium,Total 9.7 mg/dL (8.5-10.1); Chloride 105 mmol/L (98-107); Creatinine, Serum 1.15 mg/dL (0.55-1.02); EST Glomerular Filtration Rate 52 mL/min (>60); Est Glom Filt Rate - Afr Amer 63 mL/min (>60); Estimated Creatinine Clearance 49.15 ml/min; Globulin 3.6 g/dL (2.2-4.2); Glucose 443 mg/dL (74-106); Lipase 252 U/L (73-393); Potassium 4.2 mmol/L (3.5-5.1); Protein, Total 7.3 g/dL (6.4-8.2); Sodium Level 138 mmol/L (136-145)
[2020-07-27] MEDS: Insulin Lispro 100 UNIT/ML INSULN.PEN 14 UNIT SC (21:15)
[2020-07-27 23:00] LABS: Bedside Glucose 269 mg/dL (70-110)
[2020-07-27] MEDS: Ketorolac 15 MG/ML Vial IV (23:16)
[2020-07-27 23:28] VITALS: BP 155/70; PULSE 86; RESP 16; O2SAT 98
== END 2020-07-27 23:29 | disposition home or self-care (01) ==
PROVIDERS: Emergency Provider Emergency Medicine; PCP Internal Medicine
DX: M54.42 Lumbago with sciatica, left side (principal); M54.41 Lumbago with sciatica, right side; R10.33 Periumbilical pain; E11.65 Type 2 diabetes mellitus with hyperglycemia; I87.2 Venous insufficiency (chronic) (peripheral); I10 Essential (primary) hypertension; M06.9 Rheumatoid arthritis, unspecified; M79.7 Fibromyalgia; G47.30 Sleep apnea, unspecified; E66.01 Morbid (severe) obesity due to excess calories; Z68.42 Body mass index [BMI] 45.0-49.9, adult; Z91.19 Patient's noncompliance with other medical treatment and regimen; Z79.4 Long term (current) use of insulin; Z79.899 Other long term (current) drug therapy
CPT/HCPCS: 74177; 80053; 81001; 82962; 83690; 85025; 96361; 96374; 96375; 99283; J7030; Q9967; J2405

== ENCOUNTER 2020-08-03 17:01 | Emergency (ER) | payer OTHER, MEDICARE, SELFPAY ==
[2020-08-03 17:02] VITALS: BP 155/77; PULSE 93; RESP 20; TEMP 36.3; O2SAT 99; BMI 42.3
--- NOTE | 2020-08-03 18:15 | ED.DCSUM_ITS ---
- ER Visit Summary Date of Service: 08/03/20 Chief Complaint: Back pain History of Present Illness: The patient is a [address] Ramos. She reports she has chronic back pain that worsened 1 month ago. She denies any trauma. No fall, MVA, or change in activity. She describes a sharp pain is 10 of 10 severity. Is worsened by movement. She taken Voltaren and Zanaflex without relief. States that radiates down the back of both legs to the level of her feet. She denies any numbness or weakness. No problems with her bowels or bladder. No groin numbness. Patient denies any fever or chills. No abdominal pain. No dysuria or frequency. She does complain of a headache is 7 out of 10 severity. She describes as a diffuse pressure. She has a history of similar headaches. Physical Examination: Vitals: Stable. Afebrile. General: A&O x 3. NAD. Cardiovascular exam: Regular rate and rhythm, no murmur, rub or gallop. Respiratory exam: Clear to auscultation bilaterally. No wheezes or stridor. Abdominal exam: Soft, nontender, nondistended, normal bowel sounds. No per itoneal signs. Back: Diffuse moderate tenderness to palpation over the lumbar spine and the paraspinous musculature in the lumbar region. No point tenderness. Negative straight leg bilaterally. 5/5 DF, PF, EHL bilaterally. Normal sensation to light touch throughout. Extremity: No clubbing, cyanosis, or edema. Emergency Department Course and Treatment: An [facility] report was obtained which shows she is had one prescription for opiates in the past year. She is given a dose of morphine IM here. Treatment Plan: Patient be discharged prescription for 10 [place]. Instructed to follow-up with her primary care physician within a week for further evaluation and treatment. The signs and symptoms of cauda equina disc syndrome were discu ssed. She is instructed to return for these. Disposition: To home in improved and stable condition. Impression: 1. Low back pain. This note was generated with [employer] software. It may contain incorrect words, spelling, and punctuation that were not noted in review of the chart prior to signing ED Disposition - Plan for ED Patient: Instructions: ED LUMBAR RADICULOPATHY Prescriptions: Hydrocodone Bitart/Apap 5-325 [[place] 5MG-325MG] 1 tablet PO Q4H PRN PRN 2 Days #10 tablet PRN Reason: Pain Referrals: Ivette Suazo MD [Primary Care Provider] - 1 Week if not improving
[2020-08-03] MEDS: morphine 8 MG/ML Syringe IM (18:27)
[2020-08-03 18:52] VITALS: BP 149/88; PULSE 85; RESP 18; O2SAT 96
== END 2020-08-03 18:53 | disposition home or self-care (01) ==
LOC: ED 18:29
PROVIDERS: Emergency Provider Emergency Medicine; PCP Internal Medicine
DX: M54.5 Low back pain (principal); M79.7 Fibromyalgia; E11.9 Type 2 diabetes mellitus without complications; Z79.4 Long term (current) use of insulin
CPT/HCPCS: 96372; 99283

== ENCOUNTER → 2020-08-22 16:03 | Outpatient (CLI) | payer OTHER, MEDICARE, SELFPAY ==
[2020-08-14 10:07] VITALS: BMI 42.3
--- NOTE | 2020-08-22 16:04 | MRI_ITS ---
HISTORY: Back and bilateral leg pain. Spasms. Increasing pain the past several years. Comparison x-rays are from August 14, 2020. Comparison CT abdomen and pelvis is from July 27, 2020. Technique: Sagittal T1-T2 and STIR axial T1 and T2-weighted images were obtained through the lumbar spine. 127 images. Findings: Bony alignment is normal. Disc height and vertebral body height are normal. Disc signal and marrow signal are normal. The conus medullaris is posterior to L1. A benign cyst is present within the visualized portion of the right kidney. The abdominal aorta is without aneurysm. The spinal canal is widely patent. At the L4-L5 level facet arthropathy and ligamentous thickening are present. At the L5-S1 level there is some facet arthropathy and lesser ligamental thickening. MRI/Spine Lumbar (Routine) IMPRESSION: Normal but for mild facet arthropathy and thickening of the ligamentum flavum at the L4-L5 level. at 0573 Reported and signed by: Ki Ruiz MD Electronically Signed: Ki Ruiz MD at 5:51 EDT Tel , Service support ,
== END ==
PROVIDERS: PCP Internal Medicine; Referring Provider Orthopaedic Surgery; Visit Provider Orthopaedic Surgery
DX: M54.42 Lumbago with sciatica, left side (principal); M54.41 Lumbago with sciatica, right side; G89.29 Other chronic pain
CPT/HCPCS: 72148

== ENCOUNTER → 2020-09-04 09:27 | Outpatient (CLI) | payer OTHER, MEDICARE, SELFPAY ==
--- NOTE | 2020-09-04 09:29 | US_ITS ---
STUDY: RENAL ULTRASOUND - COMPLETE REASON FOR EXAM: Female, 55 years old. rt renal cyst TECHNIQUE: Ultrasound evaluation of the kidneys was performed with real-time and static snow-scale imaging. COMPARISON: None. FINDINGS: RIGHT KIDNEY: Normal location of the right kidney, which is normal in size. The right kidney measures 13.6 x 5.7 x 5.3 cm. There is a normal cortex of the right kidney. The renal cortex measures 1.9 cm. There is a 2.8 cm cyst. There are no right renal calculi. There is no right hydronephrosis. DISTAL RIGHT URETER: There is non-visualization of the distal right ureter. LEFT KIDNEY: Normal location of the left kidney, which is normal in size. The left kidney measures 11.1 x 5.2 x 6.0 cm. There is a normal cortex of the left kidney. The renal cortex measures 1.9 cm. There is no left renal mass or cyst. There are no left renal calculi. There is no left hydronephrosis. DISTAL LEFT URETER: There is non-visualization of the distal left ureter. BLADDER: The partially distended urinary bladder has a volume of 82 ml. There is a normal wall thickness of the distended urinary bladder. There is no demonstrated mass within the urinary bladder. There are no demonstrated bladder calculi. Fatty liver is noted. US/Kidney and Bladder IMPRESSION: Right renal cyst. Fatty liver. Electronically Signed: Pablo Moura DO at 21:00 EDT Tel [phone], Service support ,
== END ==
PROVIDERS: PCP Internal Medicine; Referring Provider Nurse Practitioner Primary Care; Visit Provider Nurse Practitioner Primary Care
DX: N28.9 Disorder of kidney and ureter, unspecified (principal)
CPT/HCPCS: 76770

== ENCOUNTER → 2020-10-16 07:55 | Outpatient (CLI) | payer OTHER, MEDICARE, SELFPAY ==
[2020-10-08 09:44] VITALS: BMI 42.7
[2020-10-16 09:15] LABS: Hematocrit 43.8 % (37-47); Hemoglobin 14.5 g/dL (12.0-15.0); Mean Corp Hgb Conc 33.1 g/dL (32-36); Mean Corpuscular Volume 93.8 fL (81-99); Mean Platelet Vol. 11.2 fl (6.2-12.0); Platelet Count 245 K/mm3 (150-450); RBC Distribution Width CV 11.6 % (11.6-14.6); RBC Distribution Width SD 39.9 fl (35.1-43.9); Red Blood Count 4.67 M/mm3 (4.2-5.4); White Blood Count 6.2 K/mm3 (4.4-11.0)
[2020-10-16 09:46] LABS: Vitamin B12 485 pg/mL (211-911)
[2020-10-16 09:57] LABS: ALB/GLOB Ratio 1.1 RATIO (0.9-2.4); AST(SGOT) 17 U/L (15-37); Alanine Aminotransfer ALT/SGPT 54 U/L (13-56); Albumin, Serum 3.3 g/dL (3.2-5.0); Alkaline Phosphatase 100 U/L (45-117); Anion Gap 4 (5-15); BUN 13 mg/dL (7-18); BUN/Creat Ratio 14.7 RATIO (10-20); Calcium,Total 8.5 mg/dL (8.5-10.1); Chloride 109 mmol/L (98-107); Creatinine, Serum 0.88 mg/dL (0.55-1.02); EST Glomerular Filtration Rate 70 mL/min (>60); Est Glom Filt Rate - Afr Amer 85 mL/min (>60); Globulin 3.1 g/dL (2.2-4.2); Glucose 230 mg/dL (74-106); Potassium 3.6 mmol/L (3.5-5.1); Protein, Total 6.4 g/dL (6.4-8.2); Sodium Level 140 mmol/L (136-145); Thyroid Stim Hormone (TSH) 0.98 uIU/mL (0.358-3.74)
== END ==
PROVIDERS: PCP Internal Medicine; Referring Provider Psychiatry & Neurology Neurology; Visit Provider Psychiatry & Neurology Neurology
DX: M79.7 Fibromyalgia (principal); M62.838 Other muscle spasm; G37.3 Acute transverse myelitis in demyelinating disease of central nervous system; F41.9 Anxiety disorder, unspecified
CPT/HCPCS: 36415; 80053; 82607; 82746; 84443; 85027

== ENCOUNTER → 2020-10-21 07:10 | Outpatient (CLI) | payer OTHER, MEDICARE, SELFPAY ==
[2020-10-08 09:44] VITALS: BMI 42.7
--- NOTE | 2020-10-21 07:12 | MRI_ITS ---
STUDY: MRI BRAIN WITH AND WITHOUT CONTRAST REASON FOR EXAM: Female, 55 years old. electrical shock type spasms, bilateral arms TECHNIQUE: Standardized multiplanar fat and water weighted pulse sequences were obtained. IV 23cc dotarem was administered for the contrast portion of the examination. COMPARISON: CT 05/19/2015 FINDINGS: Normal size of the ventricles and extra-axial spaces for the patient''s age. Normal white matter tracts of the supratentorial brain. There is no evidence for recent intracranial ischemia or other cause of cytotoxic edema on diffusion weighted imaging (DWI). Normal bilateral basal ganglia. Normal thalami. There is no extra-axial fluid accumulation. Normal flow voids within the major intracranial circulation suggesting patency by spin echo criteria. Normal venous enhancement. There is no enhancing intra-axial or extra-axial abnormality. Normal sella turcica, pituitary gland, infundibular stalk, optic chiasm and hypothalamus. Normal tectal plate and pineal gland. Normal midbrain, piotr and medulla. Normal cerebellum. Normal basal cisterns. Normal bilateral temporal bones. Normal bilateral internal auditory canals. There are bilateral ocular lens implants with otherwise normal intraorbital contents. Normal visualized paranasal sinuses. Normal calvarium and skull base. Normal visualized soft tissue structures. Normal visualized upper cervical spine. MRI/Brain W/WO Contrast IMPRESSION: Normal unenhanced and enhanced MRI of the brain. Electronically Signed: Elia Murillo MD at 10:01 EST Tel , Service support ,
--- NOTE | 2020-10-21 07:12 | MRI_ITS ---
STUDY: MRI CERVICAL SPINE WITH AND WITHOUT CONTRAST REASON FOR EXAM: Female, 55 years old. electrical shock type spasms, bilateral arms TECHNIQUE: Standardized fat and water weighted pulse sequences were obtained in the sagittal and axial following administration of IV 23cc dotarem. COMPARISON: FINDINGS: Normal foramen magnum and brainstem-cervical cord junction. Normal craniovertebral junction. Normal anterior atlantoaxial articulation. Normal odontoid process. Normal cervical lordosis. Normal vertebral bodies and posterior osseous elements. C2-3: Normal endplates. Normal disc height, signal and morphology. Normal central canal and intervertebral neural foramina. C3-4: Interval development of a mild broad disc osteophyte complex produces mild spinal stenosis but no neural foraminal stenosis. C4-5: No change in the mild broad disc osteophyte, produces mild spinal stenosis but no neural foraminal stenosis. C5-6: Worsening bilobed disc osteophyte, complex which is now moderate in size produces moderate spinal stenosis with abutment of the left hemicord and mild left neural foraminal stenosis. C6-7: No change in the mild broad disc osteophyte complex produces mild spinal stenosis but no neural foraminal stenosis. C7-T1: Normal endplates. Normal disc height, signal and morphology. Normal central canal and intervertebral neural foramina. Normal cervical cord. Normal visualized soft tissue structures. MRI/Spine Cervical W/WO Contrast IMPRESSION: Worsening degenerative disc disease as described above Electronically Signed: Elia Murillo MD at 10:08 EST Tel , Service support ,
== END ==
PROVIDERS: PCP Internal Medicine; Referring Provider Psychiatry & Neurology Neurology; Visit Provider Psychiatry & Neurology Neurology
DX: G37.3 Acute transverse myelitis in demyelinating disease of central nervous system (principal)
CPT/HCPCS: 70553; 72156; A9575

== ENCOUNTER → 2021-01-30 15:26 | Outpatient (CLI) | payer OTHER, MEDICARE, SELFPAY ==
[2020-10-08 09:44] VITALS: BMI 42.7
--- NOTE | 2021-01-30 15:27 | MRI_ITS ---
STUDY: MRI THORACIC SPINE WITH AND WITHOUT CONTRAST REASON FOR EXAM: Female, 55 years old. weakness in legs; gait difficulty; demyelinating disease, acute transverse myelitis; prev 2016 TECHNIQUE: 23ML IV DOTAREM was administered for the contrast portion of the examination. COMPARISON: 12/24/2015 FINDINGS: Normal kyphosis of the thoracic spine. There is no substantial scoliosis. No change in the hemangiomas within multiple vertebral bodies. T1-2, T2-3, T3-4, T4-5, T5-6, T6-7, T7-8, T8-9, T9-10, T10-11, T11-12: Normal endplates. Normal disc hydration, heights and morphology of the corresponding intervertebral discs. Normal central canal and intervertebral neural foramina at the corresponding levels. Normal visualized thoracic cord. Normal conus medullaris that terminates at the 1.. The soft tissue structures are unremarkable. There is no enhancing abnormality. MRI/Spine Thoracic W/WO Contrast IMPRESSION: Normal unenhanced and enhanced MRI examination of the thoracic spine. Electronically Signed: Elia Murillo MD at 12:46 EDT Tel , Service support ,
== END ==
LOC: MRI 15:27
PROVIDERS: PCP Internal Medicine; Referring Provider Psychiatry & Neurology Neurology; Visit Provider Psychiatry & Neurology Neurology
DX: G37.3 Acute transverse myelitis in demyelinating disease of central nervous system (principal)
CPT/HCPCS: 72157; A9575

== ENCOUNTER 2021-02-01 02:54 | Emergency (ER) | payer OTHER, MEDICARE, SELFPAY ==
[2020-10-08 09:44] VITALS: BMI 42.7
[2021-02-01 02:55] VITALS: BP 163/100; PULSE 78; RESP 20; TEMP 36.1; O2SAT 98; BMI 41.4
--- NOTE | 2021-02-01 03:10 | CT_ITS ---
STUDY: CT BRAIN WITHOUT CONTRAST REASON FOR EXAM: Female, 55 years old. headache, altered mental status RADIATION DOSAGE (If Supplied By Facility): CTDIvol = ( 44.99 ) mGy, DLP = ( 796.11 ) mGycm TECHNIQUE: Transaxial CT imaging of the brain was performed without administration of intravenous contrast material. Individualized dose optimization techniques were used for this CT. COMPARISON: MRI brain from 10/21/[address] brain from 05/19/2015 FINDINGS: Normal soft tissue structures. Normal calvarium. Normal size ventricles and extra-axial spaces for the patient''s age. Normal white matter tracts of the cerebral hemispheres. Normal basal ganglia and thalami. Normal brainstem. Normal cerebellum. There is no intracranial hemorrhage. There are no findings of an acute ischemic infarction. Normal visualized paranasal sinuses. CT/Brain/Head without Contrast IMPRESSION: Negative unenhanced CT scan of the brain for acute intracranial abnormality. Electronically Signed: Aren Montez MD at 4:21 EDT Tel , Service support ,
[2021-02-01] MEDS: Metoclopramide 10 MG/2 ML Vial 5 MG IV (03:15)
--- NOTE | 2021-02-01 03:15 | EKG12_ITS ---
Test Reason : DYSRHYTHMIA Blood Pressure : / mmHG Vent. Rate : 083 BPM Atrial Rate : 083 BPM P-R Int : 154 ms QRS Dur : 076 ms QT Int : 380 ms P-R-T Axes : 052 040 052 degrees QTc Int : 446 ms Normal sinus rhythm Normal ECG Confirmed by ANTONIETA HERNANDEZ, DOMINIK ([id number]), image editor DI SOUZA ([id number]) on 02/03/2021 1:52:24 PM Referred By: DUSTIN Confirmed By:DOMINIK FUNG MD
[2021-02-01 03:17] LABS: Absolute Lymphocyte Count 2.39 X10^3/uL (0.83-4.51); Absolute Neutrophil Count 5.2 X10^3/uL (2.0-7.7); Basophil# 0.05 X10^3/uL; Basophil% 0.6 % (0-1); Eosinophil# 0.15 X10^3/uL; Eosinophils% 1.8 % (0-5); Hematocrit 45.9 % (37-47); Lymphocyte # 2.39 X10^3/ul (4.0); Lymphocyte % 28.1 % (19-41); Mean Corp Hgb Conc 32.7 g/dL (32-36); Mean Corpuscular Hgb 31.1 pg (27.0-32.0); Mean Corpuscular Volume 95.2 fL (81-99); Mean Platelet Vol. 10.8 fl (6.2-12.0); Monocyte# 0.71 X10^3/uL; Monocyte% 8.4 % (0-10); NRBC Flagged by Analyzer 0 % (0-5); Neutrophil # 5.16 X10^3/uL (2.7-7.7); Neutrophil % 60.6 % (47-70); Platelet Count 278 K/mm3 (150-450); RBC Distribution Width CV 11.5 % (11.6-14.6); RBC Distribution Width SD 40.3 fl (35.1-43.9); Red Blood Count 4.82 M/mm3 (4.2-5.4); White Blood Count 8.5 K/mm3 (4.4-11.0)
--- NOTE | 2021-02-01 03:20 | ED.DCSUM_ITS ---
History of Present Illness Chief Complaint: Headache Informant: Patient Onset: - - tonight Timing: Continuous Quality: pain: like I'm not here Location: mid-frontal head Current Severity: Severe Maximum Severity: Severe Worsened by: unk Relieved by: nothing Associated Symptoms: feels confused. I keep passing out Narrative: Patient states she drove here from [place] because of this headache that came on gradually at some point tonight, she is not sure how long, she has a very difficult time providing any useful history, saying that she has a history of migraines and this does not feel like when it feels different. States that she has been passing out. She denies any chest pain, nausea, vomiting, focal neurologic symptoms except for her chronic ones from having transverse myelitis in the , which left her with left-sided residual weakness. States that she is currently also being worked up for multiple sclerosis and just had an MRI as an outpatient at another hospital/facility. She denies any injury or illness earlier this past day. Later in the ED encounter, patient starts to have occasional spasms of her left upper and lower extremities but not together, and provides better history that she did not give us before. She states that the spasms are not new, and she has been having them off and on for years and follows with neurology Dr. Pryor for them. At one point she was put on Cymbalta and made these a lot worse, so she was taken off of that. This is similar except that has never made her pass out. This time she states she has been having the spasms and then she would have a worse headache, and passed out and this has been recurring tonight. She denies any medication changes in the last week. - Past Medical History (1) Chronic pain Status: Chronic Comment: sees Dr. Monsalve (2) DM type 2 (diabetes mellitus, type 2) Status: Chronic (3) Fibromyalgia Status: Chronic (4) HTN (hypertension) Status: Chronic (5) Morbid obesity with BMI of 45.0-49.9, adult Status: Chronic (6) Non-compliance Status: Chronic (7) Restless leg Status: Chronic (8) Rheumatoid arthritis Status: Chronic Comment: sees Dr. Davis (9) Sleep apnea Status: Chronic Comment: non-compliant with CPAP (10) Venous insufficiency (chronic) (peripheral) Status: Chronic (11) Transverse myelitis Status: Chronic Comment: 1990s per pt Past Medical History - Allergies and Home Meds Allergies/Adverse Reactions: Allergies mushroom Allergy (Severe, Verified 02/01/21 03:00) Anaphylaxis venom-wasp [wasp venom] Allergy (Severe, Verified 02/01/21 03:00) Anaphylaxis ciprofloxacin [From Cipro] Allergy (Verified 02/01/21 03:00) Rash ciprofloxacin HCl [From Cipro] Allergy (Verified 02/01/21 03:00) Rash empagliflozin [From Jardiance] Allergy (Verified 02/01/21 03:00) Other external vaginal itching metformin Allergy (Verified 02/01/21 03:00) Diarrhea pregabalin [From Lyrica] Allergy (Verified 02/01/21 03:00) Other Vision loss and change Sulfa (Sulfonamide Antibiotics) Allergy (Verified 02/01/21 03:00) Other Mental status change cephalexin [From Keflex] Adverse Reaction (Verified 02/01/21 03:00) Rash cyclobenzaprine [From Flexeril] Adverse Reaction (Verified 02/01/21 03:00) Rash meloxicam [From Mobic] Adverse Reaction (Verified 02/01/21 03:00) Unknown nitrofurantoin [From Macrobid] Adverse Reaction (Verified 02/01/21 03:00) Vomiting Primary Care Physician: Ivette Suazo MD [Primary Care Provider] - Surgical History: appendectomy, cholecystectomy, hysterectomy Smoking Status: Former smoker - Family History Maternal Family History: Family History (Last Reviewed 01/07/21 @ 14:02 by Bernice Newman) Mother Myocardial infarction Father Hypertension Family History: Reports: No pertinent history Paternal Family History: Family History (Last Reviewed 01/07/21 @ 14:02 by Bernice Newman) Mother Myocardial infarction Father Hypertension Family History: Reports: No pertinent history Review of Systems ROS: Unable to Obtain - see HPI. very limited eval. Physical Exam Vital Signs/Narrative: Vital Signs Temp Pulse Resp BP Pulse Ox 02/01/21 02:55 96.9 F L 78 20 H 163/100 H 98 Inital Vital Signs reviewed: Yes General: Well nourished, Well developed, Obese, Unkempt, No Acute Distress - appears to not feel well. speaking in soft voice. Head: Normocephalic, Atraumatic Eyes: Perrl, EOMI ENT: Moist mucous membranes, No rhinorrhea Neck: Supple, Nontender, No lymphadenopathy, - - no meningismus/stiffness Cardiovascular: Regular rate, Regular rhythm, No murmurs. Negative for: Tachycardia Respiratory: No distress, CTA bilaterally, Chest nontender Abdomen: Soft, Nontender, Nondistended, Normal bowel sounds Back: Nontender, Normal Inspection Extremities: Nontender, No edema Skin: Normal color, No rash, No Trauma Neurological: Alert, Cranial nerves II-XII grossly intact, Normal Sensation, Weakness - left upper and lower ext's, baseline per pt Psychological: Normal affect, Normal Mood Diagnostic/Tx/Re-eval Impressions Brain CT 02/01/21 03:10 IMPRESSION: Negative unenhanced CT scan of the brain for acute intracranial abnormality. Electronically Signed: Aren Montez MD at 4:21 EDT Tel , Service support , 02/01/21 03:10 Brain/Head without Contrast [CT] Stat Laboratory Results 02/01/21 02/01/21 02/01/21 03:05 03:05 03:05 WBC 8.5 RBC 4.82 Hgb 15.0 Hct 45.9 MCV 95.2 MCH 31.1 MCHC 32.7 RDW Std Deviation 40.3 RDW Coeff of Ambrosio 11.5 L Plt Count 278 MPV 10.8 Immature Gran % (Auto) 0.500 Neut % (Auto) 60.6 Lymph % (Auto) 28.1 [place] % (Auto) 8.4 Eos % (Auto) 1.8 Baso % (Auto) 0.6 Absolute Neuts (auto) 5.2 Absolute Lymphs (auto) 2.39 Nucleated RBC % 0 Sodium 139 Potassium 4.0 Chloride 103 Carbon Dioxide 29.0 Anion Gap 7 BUN 15 Creatinine 1.03 H Estim Creat Clear Calc 54.88 Est GFR (MDRD) Af Amer 71 Est GFR (MDRD) Non-Af 59 L BUN/Creatinine Ratio 14.6 Glucose 505 H* Calcium 10.0 Troponin I < 0.015 - Rhythm Strip Rhythm Strip: Sinus Rhythm Rate: 83 Ectopy: None - EKG Initial EKG Interpretation: Sinus Rhythm, No Acute Injury Pattern - Normal EKG. No ectopy. - Medical Decision Making Labs and head CT were obtained in addition to giving her a dose of Reglan for her headache until the work-up was obtained. The CT is negative for anything acute as above, her EKG and cardiac work-up is unremarkable, while we were awaiting for the labs to return, the patient started having the spasms again and thought she was going to pass out. We witnessed her having occasional myoclonus, it is not epileptic seizure activity. She did not lose consciousness, I had nursing put her on the monitor and there were no events. She walked back and forth to the bathroom without any difficulty. I had given her Ativan 0.5 mg, she said it did not really help. However she did not lose p ostural stability while walking or have the symptoms while she was walking. Her labs returned showing significant hyperglycemia well over 500, but otherwise looking okay. I discussed with her that this may have been the issue, gave her a dose of insulin, however she wanted her family member to take her home and did not want to wait around. She has a way to check her blood sugar at home and plans on doing this. ED Disposition - Plan for ED Patient: Disposition: Home or Assisted Living Diagnosis: Cephalgia, Myoclonus, Hyperglycemia due to type 2 diabetes mellitus Instructions: ED Diabetic Hyperglycemia Referrals: Ivette Suazo MD [Primary Care Provider] - 3-5 Days
[2021-02-01 03:39] LABS: Anion Gap 7 (5-15); BUN 15 mg/dL (7-18); BUN/Creat Ratio 14.6 RATIO (10-20); Chloride 103 mmol/L (98-107); Creatinine, Serum 1.03 mg/dL (0.55-1.02); EST Glomerular Filtration Rate 59 mL/min (>60); Est Glom Filt Rate - Afr Amer 71 mL/min (>60); Estimated Creatinine Clearance 54.88 ml/min; Glucose 505 mg/dL (74-106); Sodium Level 139 mmol/L (136-145)
[2021-02-01] MEDS: LORazepam 2 MG/ML Syringe 0.5 MG IV (03:58)
[2021-02-01] MEDS: Insulin Lispro 100 UNIT/ML INSULN.PEN 16 UNIT SC (05:51)
[2021-02-01 05:56] VITALS: BP 142/72; PULSE 72; RESP 18; O2SAT 96
== END 2021-02-01 05:58 | disposition home or self-care (01) ==
PROVIDERS: Emergency Provider Emergency Medicine; PCP Internal Medicine
DX: R51.9 Headache, unspecified (principal); G25.3 Myoclonus; I10 Essential (primary) hypertension; E11.65 Type 2 diabetes mellitus with hyperglycemia; M06.9 Rheumatoid arthritis, unspecified; M79.7 Fibromyalgia; I87.2 Venous insufficiency (chronic) (peripheral); E66.01 Morbid (severe) obesity due to excess calories; Z68.42 Body mass index [BMI] 45.0-49.9, adult; Z79.4 Long term (current) use of insulin; Z79.899 Other long term (current) drug therapy; Z87.891 Personal history of nicotine dependence
CPT/HCPCS: 70450; 80048; 84484; 85025; 93005; 96374; 96375; 99283; A4216